=== PATIENT | male | born 1960 | race Caucasian/White ===

== ENCOUNTER 2018-04-22 09:35 | Observation (INO) | payer MEDICARE ==
[2018-04-22 10:10] LABS: #Eosinphils 0.4 thou/uL (0.0-0.7); #Lymphocytes 2.4 thou/uL (1.20-3.40); #Monocytes 0.5 thou/uL (0.11-0.59); #Neutrophils 3.4 thou/uL (1.40-6.50); %Basophils 0.5 % (0.0-1.0); %Eosinophils 5.5 % (0.0-10.0); %Lymphocytes 36.2 % (21.0-51.0); %Monocytes 7.2 % (0.0-10.0); %Neutrophils 50.6 % (42.0-75.0); Hemoglobin 15.6 g/dL (14.0-18.0); Mean Corpuscular HGB CONC 31.8 g/dL (32.0-36.0); Mean Corpuscular Hemoglobin 29.9 pg (27.0-31.0); Mean Corpuscular Volume 93.9 fL (78.0-98.0); Mean Platelet Volume 7.9 fL (7.4-10.4); Platelet Count 216 thou/uL (130-400); RBC Distribution Width 12.4 % (11.5-14.5); Red Blood Cell (RBC) Count 5.22 mill/uL (4.70-6.10); White Blood Cell (WBC) Count 6.7 thou/uL (4.8-10.8)
[2018-04-22 10:14] LABS: INR-International Normal Ratio 1.1; Prothrombin Time 14.4 SEC (12.0-14.7)
[2018-04-22 10:15] LABS: PTT 28.1 SEC (22.9-36.1)
[2018-04-22 10:32] LABS: ALT (SGPT) 25 U/L (8-55); AST (SGOT) 28 U/L (5-34); Albumin 4.4 g/dL (3.5-5.0); Alkaline Phosphatase 39 U/L (40-150); Anion Gap 9 mmol/L (10-20); BUN (Urea Nitrogen) 26 mg/dL (8.4-25.7); Bilirubin, Total 0.8 mg/dL (0.2-1.2); Calc. Creatinine Clearance 0 mL/min (70-130); Calcium 9.6 mg/dL (7.8-10.44); Carbon Dioxide 25 mmol/L (22-29); Chloride 106 mmol/L (98-107); Estimated GFR-MDRD 40; Globulin 3.4 g/dL (2.4-3.5); Glucose 142 mg/dL (70-105); Protein, Total 7.8 g/dL (6.0-8.3); Sodium 135 mmol/L (136-145)
[2018-04-22 14:24] VITALS: BMI 25.0
[2018-04-22] MEDS ORDERED: Ondansetron ODT 4 MG TAB PO PRN (14:33)
[2018-04-22] MEDS ORDERED: Acetaminophen 650 MG Suppository PR PRN (14:33)
[2018-04-22] MEDS ORDERED: Ondansetron HCl/PF 4 MG/2 ML Vial IVP PRN (14:33)
[2018-04-22] MEDS ORDERED: Acetaminophen 325 MG TAB PO PRN (14:33)
[2018-04-22] MEDS: Sodium Chloride 0.9% 1,000 ML IV SCH (16:32)
[2018-04-22 21:12] LABS: Hemoglobin 15.5 g/dL (14.0-18.0)
[2018-04-22] MEDS: Famotidine 20 MG TAB PO SCH (21:20)
[2018-04-23 03:45] LABS: #Basophils 0.1 thou/uL (0.0-0.2); #Eosinphils 0.3 thou/uL (0.0-0.7); #Lymphocytes 2.8 thou/uL (1.20-3.40); #Monocytes 0.6 thou/uL (0.11-0.59); #Neutrophils 3.5 thou/uL (1.40-6.50); %Basophils 1.5 % (0.0-1.0); %Eosinophils 4.7 % (0.0-10.0); %Lymphocytes 37.9 % (21.0-51.0); %Monocytes 8.3 % (0.0-10.0); %Neutrophils 47.6 % (42.0-75.0); Hemoglobin 15.2 g/dL (14.0-18.0); Mean Corpuscular HGB CONC 32.8 g/dL (32.0-36.0); Mean Corpuscular Hemoglobin 30.5 pg (27.0-31.0); Mean Platelet Volume 7.7 fL (7.4-10.4); Platelet Count 182 thou/uL (130-400); RBC Distribution Width 12.5 % (11.5-14.5); Red Blood Cell (RBC) Count 4.96 mill/uL (4.70-6.10); White Blood Cell (WBC) Count 7.3 thou/uL (4.8-10.8)
[2018-04-23 04:05] LABS: Anion Gap 10 mmol/L (10-20); BUN (Urea Nitrogen) 20 mg/dL (8.4-25.7); Calc. Creatinine Clearance 61 mL/min (70-130); Calcium 8.9 mg/dL (7.8-10.44); Carbon Dioxide 24 mmol/L (22-29); Chloride 108 mmol/L (98-107); Estimated GFR-MDRD 48; Glucose 90 mg/dL (70-105); Potassium 3.9 mmol/L (3.5-5.1); Sodium 138 mmol/L (136-145)
--- NOTE | 2018-04-23 05:21 | CON ---
GASTROENTEROLOGY CONSULTATION DATE OF CONSULTATION: 04/22/2018 CHIEF COMPLAINT: Blood in the stool. HISTORY OF PRESENT ILLNESS: Mr. Diez is a 57-year-old man who woke up at 4:00 this morning and had multiple bowel movements with red bloody stool. These are primarily brown formed stools mixed with red blood. He would have red blood that would drip from the anal opening and turn the water red. He has been on Eliquis for several years for history of atrial fibrillation and for cardiomyopathy. He has had no abdominal pain or diarrhea associated with this. He has had some constipation over a few months. He has been having to strain at hard stools. He has been taking a stool softener with a st imulant laxative as well as some fiber tablets. He has had no chest pain or shortness of breath. He did have a colonoscopy around 5 years ago. This was done in [place]. He thinks there might have be en polyps that were not removed due to his use of Eliquis. PAST MEDICAL HISTORY: HIV, atrial fibrillation, coronary artery disease, CHF, chronic kidney disease , asthma, hypertension. PAST SURGICAL HISTORY: ICD placement, coronary artery bypass graft, cholecystectomy, hernia repair a couple of months ago. He did undergo cardiac evaluation and clearance prior to that surgery. SOCIAL HISTORY: No alcohol, tobacco, or drugs. FAMILY HISTORY: Negative for GI malignancy. ALLERGIES: PENICILLIN, SULFA. MEDICATIONS: Prior to admission, Isentress, ranitidine, fenofibrate, Zetia, pravastatin, lisinopril, sotalol, Eliquis 5 mg 2 times daily, aspirin 81 mg daily, sodium bicarbonate, Ventolin, Centrum, vit brown D, fish oil, CoQ10, fiber and stimulant laxative and stool softener as stated above. He has bee n taking sennosides and docusate I believe. REVIEW OF SYSTEMS: Negative x10 systems reviewed except as stated in history of present illness. PHYSICAL EXAMINATION: VITAL SIGNS: Temperature 98.6, pulse 60, blood pressure 106/60. GENERAL: He is in no acute distress, alert and oriented x3. HEENT: Eyes have no scleral icterus. Oropharynx is clear without lesions. NECK: No cervical or supraclavicular lymphadenopathy. LUNGS: Clear to auscultation bilaterally. HEART: Regular rate and rhythm without murmur. ABDOMEN: Soft, nontender, nondistended. Bowel sounds are present. EXTREMITIES: No lower extremity edema. NEUROLOGIC: Cranial nerves are grossly intact. LABORATORY: Creatinine 1.76, bilirubin 0.8, AST 28, ALT 25, alkaline phosphatase 39, albumin 4.4. I NR 1.1. White blood cell count 6.7, hemoglobin is 15.5, platelets 216,000. IMPRESSION: 1. Hematochezia. The bleeding is most consistent with hemorrhoidal bleeding as he has brown stools mixed with red blood and his hemoglobin remains normal at 15.5. However, given that he is on chronic anticoagulation with Eliquis and has cardiomyopathy and atrial fibrillation. The plan is to follow through with colonoscopy prior to discharge. We will have to wait for the Eliquis to metabolize. 2. Chronic constipation over the last few months. He has been taking stimulant laxative, fiber, and stool softeners. Rather than the stimulant laxative and stool softeners, I have recommended startin g MiraLax 17 grams daily. If this is inadequate, he can take it twice daily. He can continue the fi vimal likely the bleeding that he is experiencing now has been from hemorrhoids that have flared up rel ated to the constipation and blood thinner. RECOMMENDATIONS: 1. We will continue on a clear-liquid diet now and plan a bowel prep tomorrow evening for colonoscop y on Thursday. His last dose of Eliquis was at 4:00 a.m. on . 2. As an outpatient, then start MiraLax 17 grams daily.
[2018-04-23] MEDS: Sodium Chloride 0.9% 1,000 ML IV SCH ×2 (07:42→23:40)
[2018-04-23] MEDS: Famotidine 20 MG TAB PO SCH ×2 (07:42→19:49)
--- NOTE | 2018-04-23 15:11 | PDOC.PN ---
- Subjective Encounter Start Date: 04/23/18 Encounter Start Time: 13:15 one small episode last evening, but none since. small BM todya, no bleeding Seen by GI last evening, plan was to prep tonight and scope in AM No F/C, no N/V/d/C, npo CP or SOB All systems reviewed and neg x as above - Objective Resuscitation Status: Resuscitation Status FULL:Full Resuscitation MAR Reviewed: Yes Vital Signs & Weight: Vital Signs (12 hours) Temp Pulse Resp BP BP Pulse Ox 04/23/18 11:22 98.3 F 60 18 114/75 97 04/23/18 07:38 98.4 F 60 18 120/74 96 04/23/18 03:30 98.1 F 60 18 106/64 96 Weight Weight 174 lb I&O: 04/22/18 04/23/18 04/24/18 06:59 06:59 06:59 Intake Total 500 Balance 500 Result Diagrams: 04/23/18 03:30 04/23/18 03:30 Phys Exam - Physical Examination Constitutional: NAD HEENT: PERRLA, moist MMs, sclera anicteric, oral pharynx no lesions Neck: no nodes, no JVD, supple, full ROM Respiratory: no wheezing, no rales, no rhonchi, clear to auscultation bilateral Cardiovascular: RRR, no significant murmur, no rub Gastrointestinal: soft, non-tender, no distention, positive bowel sounds Musculoskeletal: no edema, pulses present Neurological: non-focal, normal sensation, moves all 4 limbs Lymphatic: no nodes Psychiatric: normal affect, A&O x 3 Skin: no rash, normal turgor, cap refill <2 seconds Dx/Plan (1) Hematochezia Code(s): K92.1 - MELENA Status: Acute Comment: H/H stable, resolved, follow up GI recs. ? outpatient workup (2) HIV (human immunodeficiency virus infection) Status: Chronic Comment: controlled, continue Raltergravir and Prescobix (3) HTN (hypertension) Code(s): I10 - ESSENTIAL (PRIMARY) HYPERTENSION Status: Chronic Qualifiers: Hypertension type: essential hypertension Qualified Code(s): I10 - Essential (primary) hypertension (4) Chronic a-fib Code(s): I48.2 - CHRONIC ATRIAL FIBRILLATION Status: Chronic (5) Chronic systolic CHF (congestive heart failure) Code(s): I50.22 - CHRONIC SYSTOLIC (CONGESTIVE) HEART FAILURE Status: Chronic (6) Asthma without acute exacerbation Code(s): J45.909 - UNSPECIFIED ASTHMA, UNCOMPLICATED Status: Chronic (7) CKD (chronic kidney disease) stage 3, GFR 30-59 ml/min Code(s): N18.3 - CHRONIC KIDNEY DISEASE, STAGE 3 (MODERATE) Status: Chronic (8) Ischemic cardiomyopathy Code(s): I25.5 - ISCHEMIC CARDIOMYOPATHY Status: Chronic - Plan cont current plan of care, plan discussed w/ family * .
--- NOTE | 2018-04-23 15:35 | PRG ---
DATE OF SERVICE: 04/23/2018 SUBJECTIVE: Mr. Diez has had no further bleeding today. He has no abdominal pain or diarrhea. He is tolerating his clear liquid diet. OBJECTIVE: VITAL SIGNS: Temperature 98.3, pulse 60, blood pressure 114/75. GENERAL: He is in no acute distress, awake, alert. LUNGS: Clear to auscultation bilaterally. HEART: Regular rate and rhythm. ABDOMEN: Soft, nontender, nondistended. Bowel sounds are present. EXTREMITIES: No lower extremity edema. IMPRESSION: 1. Hematochezia. This is most consistent with hemorrhoidal bleeding. His hemoglobin is stable at 1 5.2. 2. Chronic anticoagulation with Eliquis. This is in the setting of chronic renal insufficiency and severe cardiomyopathy, requiring ICD placement. He is likely to continue to have intermittent bleedi ng. 3. Constipation. We discussed treating this with fiber and MiraLax. RECOMMENDATIONS: 1. MiraLax 17 grams daily and he has been taking 4-5 fiber tablets daily. 2. We will follow through with colonoscopy while he is here, as he is very anxious about the bleedin g in the setting of chronic anticoagulation and his heart disease. He will be 48 hours out from his last Eliquis dose by 4:00 tomorrow morning. His last dose was 4:[address] Cabello will be covering the weekend. We will perform the colonoscopy tomorrow. He should be able to go home following that.
[2018-04-23] MEDS ORDERED: GoLYTELY 4,000 ml Bottle PO SCH (17:00)
--- NOTE | 2018-04-23 17:46 | HP ---
DATE OF ADMISSION: 04/22/2018 TIME OF SERVICE: 1433. PRIMARY CARE PHYSICIAN: Out of town, it is a HIV doctor. CONSULTING PHYSICIAN: GI doctor, Dr. Pato Dominguez. CHIEF COMPLAINT: Bright red blood per rectum. HISTORY OF PRESENT ILLNESS: Mr. Diez is a 57-year-old white male with a history of hypertension, a sthma, CKD, HIV positive, under good control, ischemic cardiomyopathy with chronic systolic congestiv e heart failure who developed acute bright red blood per rectum on the day of admission. He has had 3 bowel movements with blood covering his stool. After the last episode, he had 4-5 drops that he felt fallen to the toilet. He decided to come to the emergency department for evaluation. He denies any abdominal pain, no rectal pain. No fevers or chills. No nausea, vomiting, diarrhea, o r constipation. He has never had any symptoms like this before. He is on Eliquis and aspirin. He does have a history of HIV. Last CD4 count was just under 1000 and his viral load was undetectabl e. He is managed by Infectious Disease doctor in [place]. No other current complaints. He is feeling good. He denies any syncope or presyncope. No orthostas is. No dizziness, nausea or vomiting. PAST MEDICAL HISTORY: 1. Hypertension. 2. Asthma. 3. Chronic kidney disease. 4. Human immunodeficiency virus positive, under good control. 5. Hyperkalemia. 6. Ischemic cardiomyopathy. 7. Chronic systolic congestive heart failure. PAST SURGICAL HISTORY: Includes, 1. ICD placement about a year ago. 2. CABG x3 vessels. 3. Cholecystectomy. 4. Hernia. 5. He does have a history of atrial fibrillation hence the ICD placement. HOME MEDICATIONS: 1. Isentress 400 mg p.o. b.i.d. 2. Prezcobix daily. 3. Eliquis 5 mg p.o. b.i.d. 4. Albuterol HFA 1 puff inhaled b.i.d. 5. Aspirin 81 mg daily. 6. Vitamin D3 1000 units b.i.d. 7. Zetia 10 mg p.o. q.p.m. 8. Fenofibrate 145 mg daily. 9. Fish oil 1200 mg 2 capsules daily. 10. Lisinopril 5 mg p.o. q.a.m. 11. Folic acid and multivitamin daily. 12. grams p.o. daily. 13. Pravachol 40 mg p.o. at bedtime. 14. Zantac 300 mg p.o. q.p.m. 15. Sennosides/docusate 1 q.p.m. 16. Sodium bicarbonate 650 mg daily. 17. Sotalol 120 mg p.o. b.i.d. 18. Ubidecarenone or CoQ10 100 mg p.o. b.i.d. ALLERGIES: PENICILLIN, SULFA. FAMILY HISTORY: Negative for clotting or bleeding disorder. No immune dysfunction. There is some p remature coronary artery disease. SOCIAL HISTORY: Negative for habits x3. He has not had any recent travel. No pets. REVIEW OF SYSTEMS: All systems reviewed and negative except as stated as per HPI. PHYSICAL EXAMINATION: VITAL SIGNS: Temperature 98.0, pulse 60, blood pressure 112/73, respiratory rate 18, satting 99% on room air. GENERAL: He is awake. He is alert. He is oriented x3, well-developed, well-nourished, white male w ho appears to be in no distress. HEENT: Normocephalic, atraumatic. Pupils equal, round, and reactive to light bilaterally. Mucous m embranes are moist. No visible lesions. No thrush. NECK: Supple. There is no lymphadenopathy, JVD, or thyromegaly. Normal carotid upstroke. There ar e no bruits. LUNGS: Clear. No wheezes, no rales or rhonchi. Good air movement. Symmetric chest excursion. No prolonged expiratory phase. ABDOMEN: Soft, nontender, nondistended, no mass, no organomegaly. EXTREMITIES: Show no cyanosis, no clubbing, no edema with 2+ dorsalis pedis, posterior tibial, and r adial pulses bilaterally. SKIN: Warm, moist, and well perfused. There are no rashes or lesions. RECTAL: Shows a small external hemorrhoid. There are no ulcerations or fissures. MUSCULOSKELETAL: Normal to inspection. Large joints appear normal. There is no evidence of inflamm ation or palpable effusion. NEUROLOGIC: Cranial nerves II through XII are grossly intact. There are no focal deficits. Normal speech and 5/5 strength in all 4 extremities. LABORATORY DATA: Sodium 135, potassium 5.0, chloride 106, bicarbonate 25, BUN 26, creatinine 1.76, w hich run as normal at 1.6, calcium 9.6, and glucose 142. Liver function completely within normal limits. CBC showed a white count of 6.7, hemoglobin 15.6, he matocrit 49.0, platelet count is 216,000. ASSESSMENT AND PLAN: 1. Hematochezia. His hemoglobin is 15.6. We will ask GI to see if we can keep him on a clear liqui d diet and get serial H&Hs. Suspect this is likely going to be a internal hemorrhoidal bleed. We wi ll follow up with GI recommendations. 2. Hypertension, essential. We will continue home medications. 3. Asthma, p.r.n. albuterol MDI. 4. Chronic kidney disease, stable. We will check a.m. labs. 5. Human immunodeficiency virus. We will continue his home Isentress and Prezcobix. 6. Hyperkalemia, currently normal. 7. Ischemic cardiomyopathy, atrial fibrillation, and chronic systolic congestive heart failure. We will hold the Zetia and aspirin at the time being. Continue rest of his home medications and follow up on GI recommendations.
[2018-04-24 05:55] LABS: Anion Gap 11 mmol/L (10-20); BUN (Urea Nitrogen) 20 mg/dL (8.4-25.7); Calc. Creatinine Clearance 63 mL/min (70-130); Calcium 8.8 mg/dL (7.8-10.44); Carbon Dioxide 24 mmol/L (22-29); Chloride 108 mmol/L (98-107); Estimated GFR-MDRD 50; Glucose 94 mg/dL (70-105); Magnesium 2.2 mg/dL (1.6-2.6); Potassium 3.9 mmol/L (3.5-5.1); Sodium 139 mmol/L (136-145)
[2018-04-24 06:04] LABS: #Eosinphils 0.2 thou/uL (0.0-0.7); #Lymphocytes 2.5 thou/uL (1.20-3.40); #Monocytes 0.6 thou/uL (0.11-0.59); #Neutrophils 2.9 thou/uL (1.40-6.50); %Basophils 0.7 % (0.0-1.0); %Eosinophils 3.3 % (0.0-10.0); %Lymphocytes 40.3 % (21.0-51.0); %Monocytes 8.9 % (0.0-10.0); %Neutrophils 46.8 % (42.0-75.0); Hemoglobin 14.8 g/dL (14.0-18.0); Mean Corpuscular HGB CONC 32.9 g/dL (32.0-36.0); Mean Corpuscular Hemoglobin 30.6 pg (27.0-31.0); Mean Corpuscular Volume 93.1 fL (78.0-98.0); Mean Platelet Volume 7.8 fL (7.4-10.4); Platelet Count 175 thou/uL (130-400); RBC Distribution Width 12.3 % (11.5-14.5); Red Blood Cell (RBC) Count 4.83 mill/uL (4.70-6.10); White Blood Cell (WBC) Count 6.2 thou/uL (4.8-10.8)
--- NOTE | 2018-04-24 11:15 | DIS ---
DATE OF ADMISSION: 04/22/2018 DATE OF DISCHARGE: 04/24/2018 PRIMARY CARE PHYSICIAN: Out of town. DISCHARGE DIAGNOSES: 1. Rectal bleeding. 2. History of atrial fibrillation, on anticoagulation. 3. Human immunodeficiency virus positive, controlled. 4. Hypertension. 5. Chronic kidney disease, stage 3. CONSULTATIONS: Gastroenterology, Dr. Pato Domignuez. PROCEDURES: Colonoscopy by Dr. Cabello, 04/24/2018. HISTORY AND PHYSICAL: Mr. Diez is a 57-year-old gentleman, who developed acute rectal bleeding and came to the emergency department for evaluation. Hemoglobin was 15. We were called for admission. HOSPITAL COURSE: The patient was seen and examined by me. He was placed on observation. He was mon itored overnight with serial H and Hs. His Eliquis was held. His H and H remained stable. The next morning, he had a normal bowel movement, no further rectal bleeding, and Gastroenterology had seen h im and decided to prep him the evening of 04/23/2018 for colonoscopy today. The patient underwent colonoscopy today, which was normal except for some rectal polyp, which was rem mai. He was cleared for discharge with outpatient followup. PHYSICAL EXAMINATION: The patient was seen and examined on the day of discharge. Discharge plan and disposition were discussed with the patient [id number] at the bedside. DISCHARGE MEDICATIONS: 1. Prezcobix 1 p.o. daily. 2. Eliquis 5 mg p.o. b.i.d. 3. Albuterol sulfate inhaler 1 puff b.i.d. 4. Aspirin 81 mg daily. 5. Cholecalciferol 1000 b.i.d. 6. Zetia 10 mg p.o. q.p.m. 7. Fenofibrate 145 mg daily. 8. Fish oil daily. 9. Lisinopril 5 mg p.o. q.p.m. 10. Multivitamin daily. 11. Veltassa 8.4 grams p.o. daily. 12. Pravastatin 40 mg p.o. at bedtime. 13. Raltegravir 400 mg p.o. b.i.d. 14. Zantac 300 mg p.o. daily. 15. Senna tablet 1 p.o. q.p.m. 16. Sodium bicarbonate 650 mg p.o. daily. 17. Sotalol 120 mg p.o. b.i.d. 18. CoQ10 100 mg b.i.d. FOLLOWUP APPOINTMENTS: 1. Primary care physician/HIV physician as scheduled. 2. Dr. Cabello in 2-3 weeks. DISCHARGE ACTIVITY: As tolerated. DISCHARGE DIET: Unrestricted. DISCHARGE CONDITION: Stable. DISPOSITION: Being discharged home via private vehicle.
[2018-04-24 11:58] VITALS: BP 135/71; TEMP 97.7
[2018-04-24] MEDS ORDERED: PHENYLEPHRINE-NS 100 MCG/ML 10 ML SYRINGE ONE (13:26)
[2018-04-24] MEDS ORDERED: Lidocaine 1% PF 5 ML VIAL ONE (13:26)
[2018-04-24] MEDS ORDERED: PROPOFOL 200 MG/20 ML VIAL ONE (13:26)
--- NOTE | 2018-04-24 14:52 | OP ---
DATE OF SURGERY: 04/24/2018 PREOPERATIVE DIAGNOSIS: Colonoscopy with polypectomy with biopsy forceps. PREOPERATIVE DIAGNOSIS: Hematochezia. POSTOPERATIVE DIAGNOSES: 1. A small rectal polyp, removed by forceps. 2. Mild sigmoid diverticular disease. 3. Hypertrophic anal papilla, hemorrhoids. PROCEDURE: The patient was placed on his left lateral position and was given sedation by Anesthesia Department. A rectal exam was done before the scope was advanced into the rectum. No lesions felt o n rectal exam. A Pentax video colonoscope was introduced into the rectum and advanced all the way in to the cecum. The prep was good. The mucosa appears normal throughout the colon with normal vascula r pattern. The appendical orifice, ileocecal valve, cecum, no pathology seen. On withdrawal of scop e in the cecum, ascending colon, hepatic flexure, no pathology seen. The descending colon, sigmoid c olon, no pathology seen. The rectosigmoid area, patient found to have a 7 mm polyp. This was remove d completely with biopsy forceps. Rectum showed small hemorrhoids and there is an area of mucosal er ythema most likely indicative of site of bleeding. At the time of endoscopy, no active bleeding was seen. DISCHARGE RECOMMENDATION: 1. High fiber diet. 2. Diet: As tolerated. 3. Can be discharged home later on today.
== END 2018-04-24 11:59 | disposition home or self-care (01) ==
LOC: ERS 09:35 → 2SW 13:00
PROVIDERS: ADMIT Internal Medicine Infectious Disease; ATTEND Internal Medicine Infectious Disease
PROC: 0DBN8ZX Excision of Sigmoid Colon, Via Natural or Artificial Opening Endoscopic, Diagnostic (ICD-10-PCS; principal; 2018-04-24)
DX: K62.1 Rectal polyp (principal); K57.31 Diverticulosis of large intestine without perforation or abscess with bleeding; K64.4 Residual hemorrhoidal skin tags; I13.0 Hypertensive heart and chronic kidney disease with heart failure and stage 1 through stage 4 chronic kidney disease, or unspecified chronic kidney disease; N18.3 Chronic kidney disease, stage 3 (moderate); I50.22 Chronic systolic (congestive) heart failure; J45.909 Unspecified asthma, uncomplicated; I25.5 Ischemic cardiomyopathy; E87.5 Hyperkalemia; K59.09 Other constipation; I48.2 Chronic atrial fibrillation; Z21 Asymptomatic human immunodeficiency virus [HIV] infection status; Z79.01 Long term (current) use of anticoagulants; Z79.82 Long term (current) use of aspirin; Z79.899 Other long term (current) drug therapy; Z88.0 Allergy status to penicillin; Z88.2 Allergy status to sulfonamides; Z95.1 Presence of aortocoronary bypass graft; Z95.810 Presence of automatic (implantable) cardiac defibrillator
CPT/HCPCS: 45380; 80048 ×2; 80053; 82274; 83735; 85014; 85018; 85025 ×3; 85610; 85730; 86850; 86900; 86901; 88305; 96360; 96361 ×3; 99284; G0378 ×2; 36415; J2001; J2704

== ENCOUNTER 2019-10-14 10:22 | Emergency (ER) | payer MEDICARE ==
--- NOTE | 2019-10-14 11:18 | RAD ---
XR Chest 1 View Portable HISTORY: Pacer malfunction. Dizziness and weakness COMPARISON: 08/16/2003 FINDINGS: There are changes of median sternotomy. The heart size is borderline. The aorta is tortuous . A left-sided AICD is present. The lungs are well expanded without lobar consolidation, pneumothoraces or large pleural effusions. There is no evidence of charles pulmonary edema. A tiny left pleural effusion cannot be excluded.
[2019-10-14 11:19] LABS: #Basophils 0.1 thou/uL (0.0-0.2); #Eosinphils 0.2 thou/uL (0.0-0.7); #Lymphocytes 2.7 thou/uL (1.20-3.40); #Monocytes 0.6 thou/uL (0.11-0.59); #Neutrophils 3.7 thou/uL (1.40-6.50); %Basophils 1.5 % (0.0-1.0); %Eosinophils 2.7 % (0.0-10.0); %Monocytes 7.8 % (0.0-10.0); Hemoglobin 16.2 g/dL (14.0-18.0); Mean Corpuscular HGB CONC 34.8 g/dL (32.0-36.0); Mean Corpuscular Hemoglobin 32.2 pg (27.0-31.0); Mean Corpuscular Volume 92.7 fL (78.0-98.0); Mean Platelet Volume 7.9 fL (7.4-10.4); Platelet Count 210 thou/uL (130-400); RBC Distribution Width 12.1 % (11.5-14.5); Red Blood Cell (RBC) Count 5.04 mill/uL (4.70-6.10); White Blood Cell (WBC) Count 7.3 thou/uL (4.8-10.8)
[2019-10-14 11:29] LABS: ALT (SGPT) 24 U/L (8-55); AST (SGOT) 26 U/L (5-34); Albumin 4.6 g/dL (3.5-5.0); Alkaline Phosphatase 34 U/L (40-110); Anion Gap 15 mmol/L (10-20); BUN (Urea Nitrogen) 20 mg/dL (8.4-25.7); Bilirubin, Total 0.8 mg/dL (0.2-1.2); CK (CPK) 67 U/L (30-200); Calc. Creatinine Clearance 0 mL/min (70-130); Calcium 10.8 mg/dL (7.8-10.44); Carbon Dioxide 23 mmol/L (22-29); Chloride 105 mmol/L (98-107); Estimated GFR-MDRD 43; Globulin 2.8 g/dL (2.4-3.5); Glucose 119 mg/dL (70-105); Magnesium 1.9 mg/dL (1.6-2.6); Potassium 5.2 mmol/L (3.5-5.1); Protein, Total 7.4 g/dL (6.0-8.3); Sodium 138 mmol/L (136-145)
== END 2019-10-14 12:48 | disposition home or self-care (01) ==
LOC: ERS 10:22
DX: R55 Syncope and collapse (principal); I25.2 Old myocardial infarction; I48.91 Unspecified atrial fibrillation; I10 Essential (primary) hypertension; Z79.899 Other long term (current) drug therapy; Z79.82 Long term (current) use of aspirin
CPT/HCPCS: 36415; 71045; 80053; 82550; 83735; 84484; 85025; 93005

== ENCOUNTER 2020-06-18 07:12 | Outpatient (CLI) | payer MEDICARE ==
[2020-06-19 03:58] LABS: SARS-CoV-2 MS2 Positive; SARS-CoV-2 N Gene Negative; SARS-CoV-2 S Gene Negative; SARS-CoV-2 by NAA Not Detected (NotDetected); SARS-CoV-2 orf1ab Negative
== END 2020-06-18 07:13 | disposition home or self-care (01) ==
LOC: LABBT 07:12
PROVIDERS: ATTEND Internal Medicine Gastroenterology
DX: Z01.812 Encounter for preprocedural laboratory examination (principal); R13.19 Other dysphagia; I42.9 Cardiomyopathy, unspecified; Z20.828 Contact with and (suspected) exposure to other viral communicable diseases
CPT/HCPCS: 87635; U0003

== ENCOUNTER 2020-06-22 08:02 | Day surgery (SDC) | payer MEDICARE ==
[2020-06-21 11:03] VITALS: BMI 24.7
[2020-06-22] MEDS ORDERED: PROPOFOL 200 MG/20 ML VIAL ONE (10:21)
--- NOTE | 2020-06-22 11:10 | OP ---
DATE OF PROCEDURE: 06/22/2020 PROCEDURES PERFORMED: Esophagogastroduodenoscopy with esophageal dilation over guidewire and biopsy. PREOPERATIVE DIAGNOSES: Esophageal dysphagia and history of Torres esophagus and gastroesophageal reflux disease. His dysphagia has improved significantly since starting the pantoprazole. DESCRIPTION OF PROCEDURE: Informed consent was obtained from the patient. He was sedated with total intravenous anesthesia. The bite block was placed and the endoscope was advanced easily to the second portion of the duodenum and retroflexion was performed in the stomach. The esophagus had a mucosal ring at the proximal esophagus just below the upper esophageal sphincter. This correlates to the area of his symptoms of dysphagia at the level of the sternal notch. The esophagus was dilated with an 18 mm Savary dilator over a guidewire. Second-look endoscopy showed an appropriate tear at the site of the ring indicating good results. There was grade A erosive esophagitis in the distal esophagus. This measures around 1 cm and a biopsy was obtained to rule out Torres's short-segment. The GE junction was otherwise normal. The stomach was normal including retroflexed views. The pylorus and first and second portions of the duodenum were normal. IMPRESSION: 1. Proximal esophageal ring dilated 18 mm with an appropriate shallow mucosal tear achieved. 2. Grade A erosive esophagitis, 1 cm, biopsied to rule out Torres's. 3. Otherwise normal esophagogastroduodenoscopy. RECOMMENDATIONS: 1. Await histopathology. 2. Continue pantoprazole 40 mg daily. 3. Follow up in the office in 4 to 6 weeks. Job ID: [id number]
--- NOTE | 2020-06-22 16:12 | EKG ---
Test Reason : PREOP Blood Pressure : / mmHG Vent. Rate : 060 BPM Atrial Rate : 060 BPM P-R Int : 170 ms QRS Dur : 108 ms QT Int : 440 ms P-R-T Axes : 053 043 124 degrees QTc Int : 440 ms Electronic atrial pacemaker Anterior infarct , age undetermined Abnormal ECG No previous ECGs available Confirmed by DR. Joni VIRK ([id number]) on 06/22/2020 4:11:55 PM Referred By: MONICA Confirmed By:DR. Joni VIRK
== END 2020-06-22 12:00 | disposition home or self-care (01) ==
LOC: SDC 08:02
PROVIDERS: ATTEND Internal Medicine Gastroenterology
PROC: 0DB18ZX Excision of Upper Esophagus, Via Natural or Artificial Opening Endoscopic, Diagnostic (ICD-10-PCS; principal; 2020-06-22)
PROC: 0D717ZZ Dilation of Upper Esophagus, Via Natural or Artificial Opening (ICD-10-PCS; 2020-06-22)
DX: K22.2 Esophageal obstruction (principal); K21.00 Gastro-esophageal reflux disease with esophagitis, without bleeding; K22.70 Barrett's esophagus without dysplasia; I42.9 Cardiomyopathy, unspecified; I13.0 Hypertensive heart and chronic kidney disease with heart failure and stage 1 through stage 4 chronic kidney disease, or unspecified chronic kidney disease; N18.9 Chronic kidney disease, unspecified; I50.9 Heart failure, unspecified; I25.2 Old myocardial infarction; J45.909 Unspecified asthma, uncomplicated; Z21 Asymptomatic human immunodeficiency virus [HIV] infection status; Z87.891 Personal history of nicotine dependence; Z79.01 Long term (current) use of anticoagulants; Z79.82 Long term (current) use of aspirin; Z79.899 Other long term (current) drug therapy; Z88.0 Allergy status to penicillin; Z88.2 Allergy status to sulfonamides; Z95.1 Presence of aortocoronary bypass graft
CPT/HCPCS: 88305; 88312; 88313; 93005; 93010; J2704

== ENCOUNTER 2020-11-28 09:09 | Outpatient (CLI) | payer MEDICARE ==
[2020-11-29 01:16] LABS: SARS-CoV-2 PCR by NAA Not Detected (NotDetected)
== END 2020-11-28 09:10 | disposition home or self-care (01) ==
LOC: LABBT 09:09
PROVIDERS: ATTEND Internal Medicine Gastroenterology
DX: Z01.812 Encounter for preprocedural laboratory examination (principal); K22.2 Esophageal obstruction; I42.9 Cardiomyopathy, unspecified; Z20.822 Contact with and (suspected) exposure to COVID-19
CPT/HCPCS: U0003; U0005; 87635

== ENCOUNTER 2020-12-03 06:48 | Day surgery (SDC) | payer MEDICARE ==
[2020-11-30 10:48] VITALS: BMI 24.3
[2020-12-03] MEDS ORDERED: Lidocaine 1% PF 5 ML VIAL ONE (09:07)
[2020-12-03] MEDS ORDERED: PROPOFOL 200 MG/20 ML VIAL ONE (09:07)
== END 2020-12-03 10:10 | disposition home or self-care (01) ==
LOC: SDC 06:48
PROVIDERS: ATTEND Internal Medicine Gastroenterology
PROC: 0DJ08ZZ Inspection of Upper Intestinal Tract, Via Natural or Artificial Opening Endoscopic (ICD-10-PCS; principal; 2020-12-03)
PROC: 0D717ZZ Dilation of Upper Esophagus, Via Natural or Artificial Opening (ICD-10-PCS; 2020-12-03)
DX: K22.2 Esophageal obstruction (principal); K21.00 Gastro-esophageal reflux disease with esophagitis, without bleeding; J45.909 Unspecified asthma, uncomplicated; K22.70 Barrett's esophagus without dysplasia; I13.0 Hypertensive heart and chronic kidney disease with heart failure and stage 1 through stage 4 chronic kidney disease, or unspecified chronic kidney disease; N18.9 Chronic kidney disease, unspecified; I50.9 Heart failure, unspecified; I25.2 Old myocardial infarction; I42.9 Cardiomyopathy, unspecified; Z21 Asymptomatic human immunodeficiency virus [HIV] infection status; Z87.891 Personal history of nicotine dependence; Z79.01 Long term (current) use of anticoagulants; Z79.82 Long term (current) use of aspirin; Z79.899 Other long term (current) drug therapy; Z88.0 Allergy status to penicillin; Z88.2 Allergy status to sulfonamides; Z95.1 Presence of aortocoronary bypass graft; Z95.810 Presence of automatic (implantable) cardiac defibrillator
CPT/HCPCS: J2704

== ENCOUNTER 2021-04-18 08:52 | Outpatient (CLI) | payer MEDICARE ==
[2021-04-18 16:59] LABS: SARS-CoV-2 PCR by NAA Not Detected (NotDetected)
== END 2021-04-18 08:53 | disposition home or self-care (01) ==
LOC: LABBT 08:52
PROVIDERS: ATTEND Internal Medicine Gastroenterology
DX: Z01.812 Encounter for preprocedural laboratory examination (principal); Z20.822 Contact with and (suspected) exposure to COVID-19
CPT/HCPCS: U0003; U0005

== ENCOUNTER 2021-04-23 06:04 | Day surgery (SDC) | payer MEDICARE ==
[2021-04-22 10:59] VITALS: BMI 24.7
[2021-04-23] MEDS ORDERED: Fentanyl 100 MCG/2 ML VIAL ONE (07:16)
[2021-04-23] MEDS ORDERED: PHENYLEPHRINE-NS 100 MCG/ML 10 ML SYRINGE ONE ×2 (07:16→07:43)
[2021-04-23] MEDS ORDERED: PROPOFOL 200 MG/20 ML VIAL ONE (07:43)
== END 2021-04-23 08:40 | disposition home or self-care (01) ==
LOC: SDC 06:04
PROVIDERS: ATTEND Internal Medicine Gastroenterology
PROC: 0DB38ZX Excision of Lower Esophagus, Via Natural or Artificial Opening Endoscopic, Diagnostic (ICD-10-PCS; principal; 2021-04-23)
PROC: 0DB18ZX Excision of Upper Esophagus, Via Natural or Artificial Opening Endoscopic, Diagnostic (ICD-10-PCS; 2021-04-23)
PROC: 0D738ZZ Dilation of Lower Esophagus, Via Natural or Artificial Opening Endoscopic (ICD-10-PCS; 2021-04-23)
PROC: 0D718ZZ Dilation of Upper Esophagus, Via Natural or Artificial Opening Endoscopic (ICD-10-PCS; 2021-04-23)
DX: K22.2 Esophageal obstruction (principal); K20.0 Eosinophilic esophagitis; I25.10 Atherosclerotic heart disease of native coronary artery without angina pectoris; I48.91 Unspecified atrial fibrillation; Z79.01 Long term (current) use of anticoagulants; Z79.82 Long term (current) use of aspirin; Z79.899 Other long term (current) drug therapy; Z88.0 Allergy status to penicillin; Z88.2 Allergy status to sulfonamides; Z95.1 Presence of aortocoronary bypass graft; Z95.810 Presence of automatic (implantable) cardiac defibrillator
CPT/HCPCS: 88305; J2704; J3010

== ENCOUNTER 2022-04-12 10:26 | Emergency (ER) | payer MEDICARE ==
[2022-04-12 11:30] LABS: #Eosinphils 0.1 thou/uL (0.0-0.7); #Lymphocytes 3.2 thou/uL (1.20-3.40); #Monocytes 0.5 thou/uL (0.11-0.59); #Neutrophils 5.8 thou/uL (1.40-6.50); %Basophils 0.5 % (0.0-1.0); %Eosinophils 0.6 % (0.0-10.0); %Lymphocytes 33.4 % (21.0-51.0); %Monocytes 5.2 % (0.0-10.0); %Neutrophils 60.3 % (42.0-75.0); Hemoglobin 16.9 g/dL (14.0-18.0); Mean Corpuscular HGB CONC 33.9 g/dL (32.0-36.0); Mean Corpuscular Hemoglobin 31.8 pg (27.0-31.0); Mean Corpuscular Volume 93.9 fL (78.0-98.0); Mean Platelet Volume 8.5 fL (7.4-10.4); Platelet Count 205 thou/uL (130-400); RBC Distribution Width 12.9 % (11.5-14.5); Red Blood Cell (RBC) Count 5.31 mill/uL (4.70-6.10); White Blood Cell (WBC) Count 9.7 thou/uL (4.8-10.8)
[2022-04-12 11:46] LABS: ALT (SGPT) 38 U/L (8-55); AST (SGOT) 31 U/L (5-34); Albumin 4.4 g/dL (3.5-5.0); Alkaline Phosphatase 40 U/L (40-110); Anion Gap 18 mmol/L (10-20); BUN (Urea Nitrogen) 35 mg/dL (8.4-25.7); Bilirubin, Total 0.8 mg/dL (0.2-1.2); Calc. Creatinine Clearance 0 mL/min (70-130); Calcium 10.1 mg/dL (7.8-10.44); Carbon Dioxide 25 mmol/L (22-29); Chloride 101 mmol/L (98-107); Estimated GFR 28; Globulin 3.5 g/dL (2.4-3.5); Glucose 164 mg/dL (70-105); Potassium 4.6 mmol/L (3.5-5.1); Protein, Total 7.9 g/dL (6.0-8.3); Sodium 139 mmol/L (136-145)
[2022-04-12 12:14] LABS: CKMB 3.5 ng/mL (0-6.6)
== END 2022-04-12 13:37 | disposition home or self-care (01) ==
LOC: ERS 10:26
DX: I47.1 Supraventricular tachycardia (principal); E86.0 Dehydration; I48.91 Unspecified atrial fibrillation; I10 Essential (primary) hypertension; Z79.899 Other long term (current) drug therapy; Z79.01 Long term (current) use of anticoagulants
CPT/HCPCS: 80053; 82553; 84484; 85025; 93005; 96360

== ENCOUNTER 2022-06-26 11:16 | Outpatient (CLI) | payer MEDICARE | END 2022-06-26 11:17 | disposition home or self-care (01) | LOC: SCSRAD 11:16 | PROVIDERS: ATTEND Internal Medicine Cardiovascular Disease | DX: I47.20 Ventricular tachycardia, unspecified (principal) | CPT/HCPCS: 71046 ==

== ENCOUNTER 2023-10-03 11:37 | Emergency (ER) | payer MEDICARE ==
[2023-10-03] MEDS ORDERED: dilTIAZem 25 MG/5 ML VIAL ONE (12:04)
[2023-10-03 12:55] LABS: #Monocytes 0.7 thou/uL (0.11-0.59); #Neutrophils 7.8 thou/uL (1.40-6.50); %Basophils 0.3 % (0.0-1.0); %Eosinophils 0.3 % (0.0-10.0); %Lymphocytes 18.1 % (21.0-51.0); %Monocytes 6.3 % (0.0-10.0); %Neutrophils 74.6 % (42.0-75.0); Hematocrit 55.1 % (42.0-52.0); Hemoglobin 18.4 g/dL (14.0-18.0); Mean Corpuscular HGB CONC 33.4 g/dL (32.0-36.0); Mean Corpuscular Hemoglobin 31.7 pg (27.0-31.0); Mean Platelet Volume 10.8 fL (7.4-10.4); Platelet Count 206 10x3/uL (130-400); RBC Distribution Width 14.6 % (11.5-14.5); White Blood Cell (WBC) Count 10.5 10x3/uL (4.8-10.8)
[2023-10-03 13:12] LABS: ALT (SGPT) 40 U/L (8-55); AST (SGOT) 46 U/L (5-34); Albumin 4.5 g/dL (3.4-4.8); Alkaline Phosphatase 48 U/L (40-110); Anion Gap 16 mmol/L (10-20); BUN (Urea Nitrogen) 21 mg/dL (8.4-25.7); Bilirubin, Total 1.1 mg/dL (0.2-1.2); Calc. Creatinine Clearance 0 mL/min (70-130); Calcium 9.6 mg/dL (7.8-10.44); Carbon Dioxide 21 mmol/L (23-31); Chloride 105 mmol/L (98-107); Estimated GFR 37; Globulin 3.4 g/dL (2.4-3.5); Glucose 114 mg/dL (80-115); Lipase 56 U/L (8-78); Magnesium 2.2 mg/dL (1.6-2.6); Protein, Total 7.9 g/dL (5.8-8.1); Sodium 138 mmol/L (136-145)
== END 2023-10-03 14:11 | disposition home or self-care (01) ==
LOC: ERS 11:37
DX: I48.91 Unspecified atrial fibrillation (principal); I12.9 Hypertensive chronic kidney disease with stage 1 through stage 4 chronic kidney disease, or unspecified chronic kidney disease; N18.30 Chronic kidney disease, stage 3 unspecified; F41.9 Anxiety disorder, unspecified; Z55.6 Problems related to health literacy; Z79.01 Long term (current) use of anticoagulants; Z79.899 Other long term (current) drug therapy
CPT/HCPCS: 36415; 71045; 80053; 83690; 83735; 83880; 84484; 85025; 93005; 94760